=== PATIENT | female | born 1995 | race American Indian/Alaskan Native ===

== ENCOUNTER 2017-10-23 19:52 | Emergency (ER) | payer SELFPAY ==
[2017-10-23 20:47] LABS: HCG Qualitative,Urine Positive (Negative)
[2017-10-23 20:49] LABS: Bacteria,Urine 1+ /HPF (Negative); Bilirubin,Urine NEG (Negative); Blood,Urine NEG (Negative); Color,Urine Yellow (Yellow); Mucus,Urine FEW /HPF; Protein,Urine <15 mg/dL mg/dL (Negative); Urobilinogen,Urine < 2.0 mg/dL (<2.0)
--- NOTE | 2017-10-23 21:26 | Emergency Department Report ---
ED Female HPI - General Chief complaint: Urogenital-Female Stated complaint: ABD PAIN/ SORETHROAT Time Seen by Provider: 10/23/17 21:25 Source: patient, family Mode of arrival: Ambulatory Limitations: No Limitations - History of Present Illness Initial comments: ` This is 22-year-old female here complaining of sore throat and nasal congestion 1 week. She is also reporting vaginal discharged order an abdominal cramping. Denies any back pain. Denies any concern for STD because she said she was check recently for STD. Abdominal cramping or pelvic areas 4- 10. Denies any vaginal bleeding. Denies any nausea or vomiting. Denies any chest pain or shortness of breath. Denies any fever or chills. Denies any diarrhea. Pain is crampy and comes and goes nothing makes it better and nothing makes it worse. No [id number] medication taken. MD Complaint: vaginal discharge, pelvic pain, other (nasal congestion with sore throat) Onset/Timin -: week(s) Location: suprapubic Radiation: non-radiating Severity: mild Severity scale (0 -10): 4 Quality: cramping Consistency: intermittent Improves with: none Worsens with: none Are you Now?: No Last Menstrual Period: 08/24/17 EDC: 05/31/18 Associated Symptoms: vaginal discharge, abdominal pain, other (nasal congestion with sore throat). denies: vaginal bleeding, nausea/vomiting, fever/chills, headaches, loss of appetite, dysuria, hematuria, rash, seizure, shortness of breath, syncope, weakness - Related Data Sexually active: Yes : 0 Previous Rx's Medication Instructions Recorded Last Taken Type Vit,Calc76/Iron/Folic 1 each PO QDAY 30 Days #30 tablet 10/24/17 Unknown Rx [Pnv 29-1 Tablet] metroNIDAZOLE [Flagyl] 500 mg PO Q12HR 7 Days #14 tab 10/24/17 Unknown Rx Allergies Allergy/AdvReac Type Severity Reaction Status Date / Time Penicillins Allergy Itching Verified 10/23/17 20:17 ED Review of Systems ROS: Stated complaint: ABD PAIN/ SORETHROAT Other details as noted in HPI Constitutional: denies: chills, fever Eyes: denies: eye pain, eye discharge, vision change ENT: throat pain, congestion. denies: ear pain Respiratory: denies: cough, orthopnea, shortness of breath, SOB with exertion, SOB at rest, stridor, wheezing Cardiovascular: denies: chest pain, palpitations, edema, syncope Gastrointestinal: abdominal pain. denies: nausea, vomiting, diarrhea, hematemesis, hematochezia Genitourinary: discharge. denies: urgency, dysuria, frequency, hematuria Musculoskeletal: denies: back pain, joint swelling, arthralgia, myalgia Skin: denies: rash, lesions Neurological: denies: headache, weakness Psychiatric: denies: anxiety, depression Hematological/Lymphatic: denies: easy bleeding, easy bruising ED Past Medical Hx - Past Medical History Previous Medical History?: No - Surgical History Past Surgical History?: No - Family History Family history: no significant - Social History Smoking Status: Current Every Day Smoker Substance Use Type: None - Medications Home Medications: Home Medications Medication Instructions Recorded Confirmed Last Taken Type Vit,Calc76/Iron/Folic 1 each PO QDAY 30 Days #30 tablet 10/24/17 Unknown Rx [Pnv 29-1 Tablet] metroNIDAZOLE [Flagyl] 500 mg PO Q12HR 7 Days #14 tab 10/24/17 Unknown Rx ED Physical Exam - General Limitations: No Limitations General appearance: alert, in no apparent distress - Head Head exam: Present: atraumatic, normocephalic, normal inspection - Eye Eye exam: Present: normal appearance, PERRL, EOMI Pupils: Present: normal accommodation - ENT ENT exam: Present: normal orophraynx, mucous membranes moist, normal external ear exam, other (bilateral nasal mucosa pale and boggy). Absent: TM's normal bilaterally (bilateral TM congested without erythema) - Neck Neck exam: Present: normal inspection, full ROM, other (no C-spine tenderness). Absent: tenderness, lymphadenopathy - Respiratory Respiratory exam: Present: normal lung sounds bilaterally. Absent: respiratory distress, wheezes, rales, rhonchi, stridor, chest wall tenderness, accessory muscle use, decreased breath sounds, prolonged expiratory - Cardiovascular Cardiovascular Exam: Present: regular rate, normal rhythm, normal heart sounds. Absent: systolic murmur, diastolic murmur - GI/Abdominal GI/Abdominal exam: Present: soft, normal bowel sounds. Absent: distended, tenderness, guarding, rebound, rigid, mass, bruit, pulsatile mass, hernia - External exam: Present: normal external exam. Absent: erythema, swelling, lesions, lacerations, ecchymosis, bleeding Speculum exam: Present: vaginal discharge, cervical discharge. Absent: erythema , vaginal bleeding, foreign body, tissue, laceration Bi-manual exam: Present: normal bi-manual exam. Absent: cervical motion tendernes, adnexal tenderness, adnexal mass - Expanded Exam Expanded Female exam: Absent: vaginal laceration, tissue present in vagina, herpetic lesions, vulvar erythema, vulvar tenderness, foreign body External exam: Present: normal Amniotic fluid: Present: none Speculum exam: Present: cervical OS closed, vaginal discharge. Absent: vaginal bleeding - Extremities Exam Extremities exam: Present: normal inspection, full ROM, normal capillary refill , other (no clubbing, cyanosis or edema. +2 pulses to all extremities). Absent : tenderness, pedal edema, joint swelling, calf tenderness - Back Exam Back exam: Present: normal inspection, full ROM. Absent: tenderness, CVA tenderness (R), CVA tenderness (L), muscle spasm, paraspinal tenderness, vertebral tenderness, rash noted - Neurological Exam Neurological exam: Present: alert, oriented X3, normal gait - Psychiatric Psychiatric exam: Present: normal affect, normal mood - Skin Skin exam: Present: warm, dry, intact, normal color. Absent: rash ED Course Vital Signs 10/23/17 10/24/17 20:00 02:08 Temperature 98.2 F Pulse Rate 71 68 Respiratory 16 18 Rate Blood Pressure 121/68 Blood Pressure 120/66 [Right] O2 Sat by Pulse 100 100 Oximetry - Reevaluation(s) Reevaluation #1: 10/24/17 00:07 Patient is stable at present still awaiting in wet prep results. Ultrasound positive . Patient is not having any abdominal pain. Abdominal exam is stable Reevaluation #2: 10/24/17 01:55 Patient is stable and I discussed with her ultrasound report and also care and how to apply for Medicaid for . I discussed with her the need to follow-up with [facility] ACCOUNT MANAGER. I also discussed with her her urinalysis results on other lab results along with wet prep which is positive for BV and patient does not want to be treated for gonorrhea and chlamydia because she says she knows she is does not have that. ED Medical Decision Making - Lab Data Result diagrams: 10/23/17 21:43 10/23/17 21:43 Lab Results 10/23/17 10/23/17 10/23/17 Range/Units 20:23 21:43 21:43 WBC 8.9 (4.5-11.0) K/mm3 RBC 3.99 (3.65-5.03) M/mm3 Hgb 12.4 (10.1-14.3) gm/dl Hct 36.9 (30.3-42.9) % MCV 93 (79-97) fl MCH 31 (28-32) pg MCHC 34 (30-34) % RDW 12.7 L (13.2-15.2) % Plt Count 265 (140-440) K/mm3 Lymph % (Auto) 25.8 (13.4-35.0) % [place] % (Auto) 9.4 H (0.0-7.3) % Eos % (Auto) 1.2 (0.0-4.3) % Baso % (Auto) 0.4 (0.0-1.8) % Lymph # 2.3 (1.2-5.4) K/mm3 [place] # 0.8 (0.0-0.8) K/mm3 Eos # 0.1 (0.0-0.4) K/mm3 Baso # 0.0 (0.0-0.1) K/mm3 Seg Neutrophils % 63.2 (40.0-70.0) % Seg Neutrophils # 5.6 (1.8-7.7) K/mm3 Sodium 135 L (137-145) mmol/L Potassium 3.8 (3.6-5.0) mmol/L Chloride 100.0 (98-107) mmol/L Carbon Dioxide 24 (22-30) mmol/L Anion Gap 15 mmol/L BUN 12 (7-17) mg/dL Creatinine 0.6 L (0.7-1.2) mg/dL Estimated GFR > 60 ml/min BUN/Creatinine Ratio 20 % Glucose 66 (65-100) mg/dL Calcium 9.1 (8.4-10.2) mg/dL HCG, Quant (0-4) mIU/mL Urine Color Yellow (Yellow) Urine Turbidity Clear (Clear) Urine pH 6.0 (5.0-7.0) Ur Specific [place] 1.017 (1.003-1.030) Urine Protein <15 mg/dl (Negative) mg/dL Urine Glucose (UA) Neg (Negative) mg/dL Urine Ketones Neg (Negative) mg/dL Urine Blood Neg (Negative) Urine Nitrite Neg (Negative) Ur Reducing Substances Not Reportable Urine Bilirubin Neg (Negative) Urine Ictotest Not Reportable Urine Urobilinogen < 2.0 (<2.0) mg/dL Ur Leukocyte Esterase Neg (Negative) Urine WBC (Auto) 3.0 (0.0-6.0) /HPF Urine RBC (Auto) 2.0 (0.0-6.0) /HPF U Epithel Cells (Auto) 2.0 (0-13.0) /HPF Urine Bacteria (Auto) 1+ (Negative) /HPF Urine Mucus Few /HPF Urine HCG, Qual Positive A (Negative) 10/23/17 Range/Units 21:43 WBC (4.5-11.0) K/mm3 RBC (3.65-5.03) M/mm3 Hgb (10.1-14.3) gm/dl Hct (30.3-42.9) % MCV (79-97) fl MCH (28-32) pg MCHC (30-34) % RDW (13.2-15.2) % Plt Count (140-440) K/mm3 Lymph % (Auto) (13.4-35.0) % [place] % (Auto) (0.0-7.3) % Eos % (Auto) (0.0-4.3) % Baso % (Auto) (0.0-1.8) % Lymph # (1.2-5.4) K/mm3 [place] # (0.0-0.8) K/mm3 Eos # (0.0-0.4) K/mm3 Baso # (0.0-0.1) K/mm3 Seg Neutrophils % (40.0-70.0) % Seg Neutrophils # (1.8-7.7) K/mm3 Sodium (137-145) mmol/L Potassium (3.6-5.0) mmol/L Chloride (98-107) mmol/L Carbon Dioxide (22-30) mmol/L Anion Gap mmol/L BUN (7-17) mg/dL Creatinine (0.7-1.2) mg/dL Estimated GFR ml/min BUN/Creatinine Ratio % Glucose (65-100) mg/dL Calcium (8.4-10.2) mg/dL HCG, Quant 93004 H (0-4) mIU/mL Urine Color (Yellow) Urine Turbidity (Clear) Urine pH (5.0-7.0) Ur Specific [place] (1.003-1.030) Urine Protein (Negative) mg/dL Urine Glucose (UA) (Negative) mg/dL Urine Ketones (Negative) mg/dL Urine Blood (Negative) Urine Nitrite (Negative) Ur Reducing Substances Urine Bilirubin (Negative) Urine Ictotest Urine Urobilinogen (<2.0) mg/dL Ur Leukocyte Esterase (Negative) Urine WBC (Auto) (0.0-6.0) /HPF Urine RBC (Auto) (0.0-6.0) /HPF U Epithel Cells (Auto) (0-13.0) /HPF Urine Bacteria (Auto) (Negative) /HPF Urine Mucus /HPF Urine HCG, Qual (Negative) Urine culture sent Wet prep: No trichomoniasis, no yeast and greater then 20% clue cells. Gonorrhea and chlamydia pending - Radiology Data Radiology results: report reviewed OB less than 14 week transfer abdominal and transvaginal ultrasound obtained and dictated by radiologist. See results below Patient: TASHIA BENITEZ MR#: [id number] : 1995 Acct:[id number] Age/Sex: 22 / F ADM Date: 10/23/17 Loc: ED Attending Dr: Ordering Physician: GUADALUPE SALDIVAR Date of Service: 10/23/17 Procedure(s): US OB transvaginal Accession Number(s): [id number] cc: GUADALUPE SALDIVAR FINAL REPORT EXAM: US OB TRANSVAGINAL COMPARISON: None available. HISTORY: positive with abdominal pain TECHNIQUE: Several real-time grayscale and color Doppler images were obtained. Transabdominal and transvaginal exam. FINDINGS: Uterus measures 8.8 x 5.3 x 7.0 centimeters. Single live IUP. Estimated gestational age 7 weeks 3 days. Estimated delivery date June 08, 2018. heart rate 147 beats per minute. There is a small subchorionic hemorrhage measuring 1.0 x 0.6 x 1.5 centimeters. At the posterior body of the uterus there is a hypoechoic lesion compatible fibroid measuring 1.0 x 0.8 x 0.9 centimeters. Right ovary measures 4.1 x 2.8 x 2.4 centimeters. The left ovary measures 2.9 x 1.6 x 1.8 centimeters. Within the right ovary, there is a 2.6 by 1.8 x 1.9 centimeter hypoechoic avascular structure which may reflect corpus luteum. No adnexal masses. IMPRESSION: Single live IUP. Estimated gestational age 7 weeks 3 days. Estimated delivery date 08/03/2018. Small subchorionic hemorrhage. 2.6 centimeter hypoechoic avascular structure in the right ovary which may reflect corpus luteum. No adnexal masses are demonstrated. 1 centimeter fibroid at the posterior body of the uterus. Transcribed By: SHAREE Dictated By: VALENTIN MARTINEZ MD Electronically Authenticated By: VALENTIN MARTINEZ MD Signed Date/Time: 10/23/172258 DD/ 58 TD/TT: 10/23/172258 - Medical Decision Making ED course This is a 22-year-old female here reports that she is having sore throat and nasal congestion 1 week and she is also reporting that she does have vaginal discharge with odor and abdominal cramping reports not concerned for STD because she had STD testing done and she is not concerned. She says she has one partner and her partner is only sleeping with her. Partner is with her and he denies having any symptoms. He denies having any sexual activity would any other individual. Patient reports she is here to be checked. Patient was seen and examined by myself and she is stable. Ultrasound transabdominal OB less than 14 weeks and transvaginal reveals single IUP at 7 weeks and 3 days, small subchorionic hemorrhage noted. The heart rate is about 147 beats per minute. Right ovarian cyst noted and 1 cm uterine fibroid noted. No medication needed and emergency room and she is eating and drinking well. Vital signs are stable she is afebrile. . She had CBC done and stable, quantitative positive and correlates with ultrasound. Wet prep positive for bacterial vaginosis and gonorrhea and chlamydia pending. Urinalysis reveals normal values except for 1+ bacteria and urine is positive. Urine culture sent. BMP is stable. I discussed the patient the results of her ultrasound and also her lab results with positive wet prep for BV. I discussed with her treatment plan for BV and she wants to wait for the gonorrhea and chlamydia tests to come back because she says she does not have gonorrhea or chlamydia. I discussed with her that she needs to follow-up with [facility] for follow-up care. She was given information on obtaining and will care by financial services. Patient voiced understanding. A/P 1: Positive IUP at 7 weeks and 3 days- verified by ultrasound with positive heart rate at 147. Small subchorionic bleed. Patient will be started on vitamin and referred to [facility] ACCOUNT MANAGER for care 2: Pelvic pain: Patient is stable and did not need any medication. Abdominal exam is normal without any tenderness. Pelvic exam is normal for vaginal discharge 3: Allergic rhinitis-patient instructed to flush her nostrils with nasal saline wash 3 times a day. 4: Ovarian cyst, right-referral to [facility]IST[facility] ACCOUNT MANAGER 5-uterine fibroids-per ultrasound and will be managed by ASSISTANT ACCOUNT MANAGER 6: Vaginal discharge-wet prep positive for bacterial vaginosis, negative for trichomoniasis and yeast. Gonorrhea and chlamydia is pending. Patient will be treated with Flagyl for bacterial vaginosis and she wants to wait for gonorrhea and chlamydia tests come back because she said she had recent STD testing and and was negative. 7: Nicotine abuse: Smoking cessation encouraged and information given on how to stop smoking and effects of smoking on fetus. Patient education medication, diagnosis, labs, treatment plan and need to follow -up. care, smoking cessation and smoking and effects on the fetus. She voiced understanding. Prescription for Flagyl and vitamin up and discharged Pt Discharged home in stable condition. Vital signs are stable she is afebrile and to follow-up with [facility] woman [facility] ACCOUNT MANAGER in 2 days . I instructed her to return to the emergency room if she develops vaginal bleeding, increase in pain , nausea and vomiting otherwise follow up with [facility] ACCOUNT MANAGER and she voiced understanding. - Differential Diagnosis ectopic , UTI, uterine fibroids, ovarian cyst, STD Critical care attestation.: If time is entered above; I have spent that time in minutes in the direct care of this critically ill patient, excluding procedure time. ED Disposition Clinical Impression: at early stage, Pelvic pain during , Bacterial vaginosis, Right ovarian cyst, Nicotine abuse Subchorionic hematoma in first trimester Qualifiers: Fetus number: single or unspecified fetus Qualified Code(s): O41.8X10 - Other specified disorders of amniotic fluid and membranes, first trimester, not applicable or unspecified; O46.8X1 - Other antepartum hemorrhage, first trimester Vaginal discharge in Qualifiers: Trimester: first trimester Qualified Code(s): O26.891 - Other specified related conditions, first trimester; N89.8 - Other specified noninflammatory disorders of vagina Uterine fibroid Qualifiers: Uterine leiomyoma location: unspecified location Qualified Code(s): D25.9 - Leiomyoma of uterus, unspecified Allergic rhinitis Qualifiers: Allergic rhinitis trigger: unspecified Allergic rhinitis seasonality: unspecified seasonality Qualified Code(s): J30.9 - Allergic rhinitis, unspecified Disposition: DC-01 TO HOME OR SELFCARE Is pt being admited?: No Does the pt Need Aspirin: No Condition: Stable Instructions: Bacterial Vaginosis (ED), How to Stop Smoking (ED), Secondhand Smoke Exposure in Children (ED), (ED), Abdominal Pain in ( ED), Allergic Rhinitis (ED), Safe Sex (ED), Uterine Fibroids (ED), Ovarian Cyst (ED) Additional Instructions: Patient started to follow-up with ASSISTANT ACCOUNT MANAGER and to refer to discharge instruction paperwork for phone number and address of ASSISTANT ACCOUNT MANAGER to call on Wednesday to schedule an appointment. Instructed to return to emergency room if she developed increase in abdominal pain, vaginal bleeding, nausea and vomiting otherwise if not follow up with her ASSISTANT ACCOUNT MANAGER Smoking cessation encouraged and literature given on how to stop smoking and effects of smoking on children. Start taking vitamin Start taking Flagyl for bacterial vaginosis Increase her fluid intake Practice safe sex Prescriptions: metroNIDAZOLE [Flagyl] 500 mg PO Q12HR 7 Days #14 tab Vit,Calc76/Iron/Folic [Pnv 29-1 Tablet] 1 each PO QDAY 30 Days #30 tablet Referrals: [facility] [Outside] - 10/25/17 BERNICE FRANCO MD [Staff Physician] - 10/25/17 Forms: STI Treatment and Prevention, Accompanied Note, Work/School Release Form (ED)
[2017-10-23 22:04] LABS: Basophils % (Auto) 0.4 % (0.0-1.8); Eosinophils # (Auto) 0.1 K/mm3 (0.0-0.4); Eosinophils % (Auto) 1.2 % (0.0-4.3); Hematocrit 36.9 % (30.3-42.9); Hemoglobin 12.4 gm/dl (10.1-14.3); Lymphocytes # (Auto) 2.3 K/mm3 (1.2-5.4); Lymphocytes % (Auto) 25.8 % (13.4-35.0); Mean Corpuscular HGB Conc 34 % (30-34); Mean Corpuscular Hemoglobin 31 pg (28-32); Mean Corpuscular Volume 93 fl (79-97); Monocytes # (Auto) 0.8 K/mm3 (0.0-0.8); Monocytes % (Auto) 9.4 % (0.0-7.3); Platelet Count 265 K/mm3 (140-440); Red Blood Count 3.99 M/mm3 (3.65-5.03); Red Cell Distribution Width 12.7 % (13.2-15.2)
[2017-10-23 22:39] LABS: BUN/Creatinine Ratio 20; Blood Urea Nitrogen 12 mg/dL (7-17); Calcium 9.1 mg/dL (8.4-10.2); Hemolysis Index 2
--- NOTE | 2017-10-23 23:03 | Ultrasound Report ---
FINAL REPORT EXAM: US OB TRANSVAGINAL COMPARISON: None available. HISTORY: positive with abdominal pain TECHNIQUE: Several real-time grayscale and color Doppler images were obtained. Transabdominal and transvaginal exam. FINDINGS: Uterus measures 8.8 x 5.3 x 7.0 centimeters. Single live IUP. Estimated gestational age 7 weeks 3 days. Estimated delivery date June 08, 2018. heart rate 147 beats per minute. There is a small subchorionic hemorrhage measuring 1.0 x 0.6 x 1.5 centimeters. At the posterior body of the uterus there is a hypoechoic lesion compatible fibroid measuring 1.0 x 0.8 x 0.9 centimeters. Right ovary measures 4.1 x 2.8 x 2.4 centimeters. The left ovary measures 2.9 x 1.6 x 1.8 centimeters. Within the right ovary, there is a 2.6 by 1.8 x 1.9 centimeter hypoechoic avascular structure which may reflect corpus luteum. No adnexal masses. IMPRESSION: Single live IUP. Estimated gestational age 7 weeks 3 days. Estimated delivery date 08/03/2018. Small subchorionic hemorrhage. 2.6 centimeter hypoechoic avascular structure in the right ovary which may reflect corpus luteum. No adnexal masses are demonstrated. 1 centimeter fibroid at the posterior body of the uterus.
--- NOTE | 2017-10-23 23:03 | Ultrasound Report ---
FINAL REPORT EXAM: US OB < = 14 WEEKS FETUS HISTORY: positive with abdominal pain COMPARISON: None available. TECHNIQUE: Several real-time grayscale and color Doppler images were obtained. Transabdominal and transvaginal exam. FINDINGS: Uterus measures 8.8 x 5.3 x 7.0 centimeters. Single live IUP. Estimated gestational age 7 weeks 3 days. Estimated delivery date June 08, 2018. heart rate 147 beats per minute. There is a small subchorionic hemorrhage measuring 1.0 x 0.6 x 1.5 centimeters. At the posterior body of the uterus there is a hypoechoic lesion compatible fibroid measuring 1.0 x 0.8 x 0.9 centimeters. Right ovary measures 4.1 x 2.8 x 2.4 centimeters. The left ovary measures 2.9 x 1.6 x 1.8 centimeters. Within the right ovary, there is a 2.6 by 1.8 x 1.9 centimeter hypoechoic avascular structure which may reflect corpus luteum. No adnexal masses. IMPRESSION: Single live IUP. Estimated gestational age 7 weeks 3 days. Estimated delivery date 08/03/2018. Small subchorionic hemorrhage. 2.6 centimeter hypoechoic avascular structure in the right ovary which may reflect corpus luteum. No adnexal masses are demonstrated. 1 centimeter fibroid at the posterior body of the uterus.
[2017-10-24 02:08] VITALS: BP 120/66
== END 2017-10-24 03:17 | disposition home or self-care (01) ==
LOC: ED 19:52
DX: O26.891 Other specified pregnancy related conditions, first trimester (principal); N89.8 Other specified noninflammatory disorders of vagina; J30.9 Allergic rhinitis, unspecified; O34.11 Maternal care for benign tumor of corpus uteri, first trimester; O43.891 Other placental disorders, first trimester; O23.591 Infection of other part of genital tract in pregnancy, first trimester; O99.331 Smoking (tobacco) complicating pregnancy, first trimester; Z88.0 Allergy status to penicillin; Z3A.01 Less than 8 weeks gestation of pregnancy
CPT/HCPCS: 36415; 76801; 76817; 80048; 81001; 81025; 84702; 85025; 87086; 87210; 87591; 99284

== ENCOUNTER 2017-11-11 18:21 | Emergency (ER) | payer SELFPAY ==
[2017-11-11] MEDS ORDERED: XYLOCAINE 1% MPF 5 mL INFILTRATI ONE (21:16)
[2017-11-11] MEDS ORDERED: ZITHROMAX PO ONE (21:16)
[2017-11-11] MEDS ORDERED: ROCEPHIN IM ONE (21:16)
--- NOTE | 2017-11-11 21:45 | Emergency Department Report ---
ED HPI - General Chief complaint: Abdominal Pain Stated complaint: 12WKS SEVERE STOMACH PAINS Time Seen by Provider: 11/11/17 21:14 Source: patient Mode of arrival: Ambulatory Limitations: No Limitations - History of Present Illness Initial comments: This is a 22-year-old female nontoxic, well nourished in appearance, no acute signs of distress presents to the ED with c/o of intermittent pelvic cramping. Patient denies any vaginal bleeding. Patient denies any upper abdomen pain. Patient denies any vaginal discharge. Patient denies any nausea, vomiting, chest pain, shortness of breathe, fever, chills, headache, stiff neck , numbness, tingling. Patient denies any urinary symptoms. Patient allergies to penicillin as a child but does not know reaction. Patient denies past medical history. Patient denies followed up with the [facility]. Patient stated that last visit she had a positive test and was told she is about 7 weeks' . MD Complaint: other (pelvic cramping) Location: pelvis Radiation: none Severity: mild Severity scale (0 -10): 3 Quality: cramping Consistency: intermittent, now resolved Improves with: none Worsens with: none Associated symptoms: vaginal discharge. denies: nausea/vomiting, vaginal bleeding, abdominal pain, dysuria, headache, vision changes, malaise, dysparuenia, rash, seizure, shortness of breath, syncope, weakness Vaginal bleeding: none :: Yes OB History - Current : no complications OB History - Previous Pregnancies: no complications Pre-wood care: none - Related Data Previous Rx's Medication Instructions Recorded Last Taken Type Vit,Calc76/Iron/Folic 1 each PO QDAY 30 Days #30 tablet 10/24/17 Unknown Rx [Pnv 29-1 Tablet] metroNIDAZOLE [Flagyl] 500 mg PO Q12HR 7 Days #14 tab 10/24/17 Unknown Rx Acetaminophen 500 mg PO Q6H PRN #30 tablet 11/11/17 Unknown Rx Allergies Allergy/AdvReac Type Severity Reaction Status Date / Time Penicillins Allergy Itching Verified 10/23/17 20:17 ED Review of Systems ROS: Stated complaint: 12WKS SEVERE STOMACH PAINS Other details as noted in HPI Constitutional: denies: chills, fever Eyes: denies: eye pain, eye discharge, vision change ENT: denies: ear pain, throat pain Respiratory: denies: cough, shortness of breath, wheezing Cardiovascular: denies: chest pain, palpitations Endocrine: no symptoms reported Gastrointestinal: abdominal pain (pelvic area). denies: nausea, diarrhea Genitourinary: discharge. denies: urgency, dysuria, frequency, hematuria Musculoskeletal: denies: back pain, joint swelling, arthralgia Skin: denies: rash, lesions Neurological: denies: headache, weakness, paresthesias Psychiatric: denies: anxiety, depression Hematological/Lymphatic: denies: easy bleeding, easy bruising ED Past Medical Hx - Past Medical History Previous Medical History?: Yes Additional medical history: Uterine fibroids, Ovarian cyst, Bacterial vaginosis - Social History Smoking Status: Former Smoker Substance Use Type: Alcohol, Prescribed - Medications Home Medications: Home Medications Medication Instructions Recorded Confirmed Last Taken Type Vit,Calc76/Iron/Folic 1 each PO QDAY 30 Days #30 tablet 10/24/17 Unknown Rx [Pnv 29-1 Tablet] metroNIDAZOLE [Flagyl] 500 mg PO Q12HR 7 Days #14 tab 10/24/17 Unknown Rx Acetaminophen 500 mg PO Q6H PRN #30 tablet 11/11/17 Unknown Rx ED Physical Exam - General Limitations: No Limitations General appearance: alert, in no apparent distress - Head Head exam: Present: atraumatic, normocephalic - Eye Eye exam: Present: normal appearance Pupils: Present: normal accommodation - ENT ENT exam: Present: normal exam, mucous membranes moist - Neck Neck exam: Present: normal inspection, full ROM. Absent: tenderness, meningismus, lymphadenopathy - Respiratory Respiratory exam: Present: normal lung sounds bilaterally. Absent: respiratory distress, wheezes, rales, rhonchi, stridor, chest wall tenderness, accessory muscle use, decreased breath sounds, prolonged expiratory - Cardiovascular Cardiovascular Exam: Present: regular rate, normal rhythm, normal heart sounds. Absent: bradycardia, tachycardia, irregular rhythm, systolic murmur, diastolic murmur, rubs, gallop - GI/Abdominal GI/Abdominal exam: Present: soft, normal bowel sounds. Absent: distended, tenderness, guarding, rebound, rigid, diminished bowel sounds - Expanded GI/Abdominal Exam Expanded GI/Abdominal exam: Absent: psoas sign, obturator sign, heel tap sign, Quick's sign, Rovsing's sign, tenderness at Mcbur[place]'s Point, ascites - Rectal Rectal exam: Present: deferred - Extremities Exam Extremities exam: Present: normal inspection, full ROM, normal capillary refill. Absent: tenderness - Back Exam Back exam: Present: normal inspection, full ROM. Absent: tenderness, CVA tenderness (R), CVA tenderness (L), muscle spasm, paraspinal tenderness, vertebral tenderness - Neurological Exam Neurological exam: Present: alert, oriented X3, normal gait - Psychiatric Psychiatric exam: Present: normal affect, normal mood - Skin Skin exam: Present: warm, dry, intact, normal color. Absent: rash ED Course Vital Signs 11/11/17 11/11/17 18:32 23:18 Temperature 97.7 F 97.9 F Pulse Rate 88 90 Respiratory 20 18 Rate Blood Pressure 115/60 Blood Pressure 120/67 [Right] O2 Sat by Pulse 100 100 Oximetry - Reevaluation(s) Reevaluation #1: 11/11/17 21:47 Patient is speaking in full sentences with no signs of distress noted. ED Medical Decision Making - Lab Data Result diagrams: 11/11/17 21:21 11/11/17 21:21 - Medical Decision Making This is a 22-year-old female presents with gonorrhea and pelvic cramping. Patient is stable and was examined by me. previous visit has a positive gonorrhea but patient was not treated for this. during exam, patient stated abdominal pain has resolved. Normal abdominal exam. US OB obtained and dictated by the radiologist by the radiologist. Ua obtained. Quantative serum test obtained. Patient notified of the US report with no questions noted by the patient. No vaginal bleeding. Patient received Rocephin and azithromycin as she stated that she is not sure of allergies to penicillin upon examination. Labs within normal limits. Patient was referred to Follow-up with a [facility] in 3 -5 days or if symptoms worsen and continue return to emergency room as soon as possible. At time of discharge, the patient does not seem toxic or ill in appearance. No acute signs of distress noted. Patient agrees to discharge treatment plan of care. No further questions noted by the patient. Critical care attestation.: If time is entered above; I have spent that time in minutes in the direct care of this critically ill patient, excluding procedure time. ED Disposition Clinical Impression: Gonorrhea, with abdominal cramping of lower quadrant, antepartum Disposition: DC- TO HOME OR SELFCARE Is pt being admited?: No Does the pt Need Aspirin: No Condition: Stable Instructions: Abdominal Pain (ED), (ED), Gonococcal Urethritis (ED) Additional Instructions: Follow-up with a [facility] doctor in 3-5 days or if symptoms worsen and continue return to emergency room as soon as possible. Prescriptions: Acetaminophen 500 mg PO Q6H PRN #30 tablet PRN Reason: Pain , Severe (7-10) Referrals: PRIMARY CAREMD [Primary Care Provider] - 3-5 Days BERNICE FRANCO MD [Staff Physician] - 3-5 Days [facility] [Provider Group] - 3-5 Days [facility] [Outside] - 3-5 Days Forms: Work/School Release Form(ED)
[2017-11-11 22:15] LABS: Basophils % (Auto) 0.6 % (0.0-1.8); Eosinophils # (Auto) 0.1 K/mm3 (0.0-0.4); Eosinophils % (Auto) 0.6 % (0.0-4.3); Hematocrit 32.1 % (30.3-42.9); Hemoglobin 10.9 gm/dl (10.1-14.3); Lymphocytes # (Auto) 2.3 K/mm3 (1.2-5.4); Lymphocytes % (Auto) 26.7 % (13.4-35.0); Mean Corpuscular HGB Conc 34 % (30-34); Mean Corpuscular Hemoglobin 32 pg (28-32); Mean Corpuscular Volume 93 fl (79-97); Monocytes # (Auto) 0.8 K/mm3 (0.0-0.8); Platelet Count 230 K/mm3 (140-440); Red Blood Count 3.44 M/mm3 (3.65-5.03); Red Cell Distribution Width 12.6 % (13.2-15.2)
[2017-11-11 22:32] LABS: BUN/Creatinine Ratio 30; Blood Urea Nitrogen 15 mg/dL (7-17); Calcium 8.7 mg/dL (8.4-10.2); Hemolysis Index 5; Lipase 61 units/L (13-60)
[2017-11-11 23:18] VITALS: BP 120/67
--- NOTE | 2017-11-11 23:31 | Ultrasound Report ---
FINAL REPORT EXAM: US OB < = 14 WEEKS FETUS HISTORY: pelvic pain TECHNIQUE: Obstetrical ultrasound transabdominal PRIORS: None. FINDINGS: There is gestational sac within the uterus There is a pole present with crown-rump length of 3.29 centimeters estimated at 10 weeks 1 day with estimated date of delivery June 08, 2018 cardiac activity is present with heart rate of 167 beats per minute Yolk sac is identified There is a small hypoechoic focus adjacent to the gestational sac probable small subchorionic hemorrhage. Noted is 1.6 centimeter posterior fibroid within the uterus. Right ovary is 3.8 x 1.7 x 2.6 centimeters There is a 2.0 centimeter right ovarian cyst probable corpus luteum Superior to the right of the uterus there is kidney present measuring 11.3 centimeters in length without evidence for hydronephrosis consistent with a pelvic kidney. Left ovary is 3.2 x 2.5 x 1.8 centimeters. No abnormal mass or cyst identified IMPRESSION: Single live intrauterine gestation estimated at 10 weeks 1 day Small subchorionic hemorrhage 1.6 centimeter uterine fibroid noted Pelvic kidney
== END 2017-11-11 23:47 | disposition home or self-care (01) ==
LOC: ED 18:21
DX: O98.211 Gonorrhea complicating pregnancy, first trimester (principal); O26.891 Other specified pregnancy related conditions, first trimester; R10.2 Pelvic and perineal pain; D25.9 Leiomyoma of uterus, unspecified; N83.209 Unspecified ovarian cyst, unspecified side; Z87.891 Personal history of nicotine dependence; Z88.0 Allergy status to penicillin; Z3A.12 12 weeks gestation of pregnancy
CPT/HCPCS: 36415; 76801; 80048; 83690; 84702; 85025; 96372; 99283; J0696

== ENCOUNTER 2021-05-01 03:41 | Emergency (ER) | payer MEDICAID ==
[2021-05-01] MEDS ORDERED: HYDROcodone/ACETAMINOPHEN 5-325 MG TAB PO ONE (06:47)
[2021-05-01] MEDS ORDERED: ceFAZolin 1 GM VIAL IM ONE (06:47)
--- NOTE | 2021-05-01 06:50 | Emergency Department Report ---
ED Lower Extremity HPI - General Chief Complaint: Extremity Injury, Lower Stated Complaint: FOOT PAIN Time Seen by Provider: 05/01/21 06:33 Source: patient Mode of arrival: Ambulatory Limitations: No Limitations - History of Present Illness Initial Comments: Patient presents with pain in the right foot with swelling. She noticed some sort of pustule several days ago between her toes. She popped it, and it returned. She popped it again, and now her foot is swollen. She has subjective fevers. There is no chills. Patient states that this was between the second and third toes. She is now noticed swelling in the foot diffusely. She does not have isolated swelling like she did. She did get some purulent drainage out when she popped this with a needle. That occurred both times. She has no direct trauma. She has no fevers or chills. There is no cough or congestion. - Related Data Previous Rx's Medication Instructions Recorded Last Taken Type Vit,Calc76/Iron/Folic 1 each PO QDAY 30 Days #30 tablet 10/24/17 Unknown Rx [Pnv 29-1 Tablet] metroNIDAZOLE [Flagyl] 500 mg PO Q12HR 7 Days #14 tab 10/24/17 Unknown Rx Acetaminophen 500 mg PO Q6H PRN #30 tablet 11/11/17 Unknown Rx Acetaminophen/Codeine [Tylenol 1 tab PO Q6H PRN #12 tab 05/01/21 Unknown Rx /Codeine # 3 tab] cephALEXin [Keflex] 500 mg PO Q8HR #21 cap 05/01/21 Unknown Rx Allergies Allergy/AdvReac Type Severity Reaction Status Date / Time Penicillins Allergy Itching Verified 10/23/17 20:17 ED Review of Systems ROS: Stated complaint: FOOT PAIN Other details as noted in HPI Comment: All other systems reviewed and negative Constitutional: denies: fever Eyes: denies: vision change ENT: denies: throat pain Respiratory: denies: cough Cardiovascular: denies: chest pain Endocrine: denies: unexplained weight loss Gastrointestinal: denies: abdominal pain Genitourinary: denies: dysuria Skin: as per HPI Hematological/Lymphatic: denies: easy bruising ED Past Medical Hx - Past Medical History Previous Medical History?: Yes Additional medical history: Uterine fibroids, Ovarian cyst, Bacterial vaginosis - Surgical History Past Surgical History?: No - Family History Family history: no significant - Social History Smoking Status: Former Smoker Substance Use Type: Alcohol, Prescribed - Medications Home Medications: Home Medications Medication Instructions Recorded Confirmed Last Taken Type Vit,Calc76/Iron/Folic 1 each PO QDAY 30 Days #30 tablet 10/24/17 Unknown Rx [Pnv 29-1 Tablet] metroNIDAZOLE [Flagyl] 500 mg PO Q12HR 7 Days #14 tab 10/24/17 Unknown Rx Acetaminophen 500 mg PO Q6H PRN #30 tablet 11/11/17 Unknown Rx Acetaminophen/Codeine [Tylenol 1 tab PO Q6H PRN #12 tab 05/01/21 Unknown Rx /Codeine # 3 tab] cephALEXin [Keflex] 500 mg PO Q8HR #21 cap 05/01/21 Unknown Rx ED Physical Exam - General Limitations: No Limitations, Other (Pulse ox noted and normal) General appearance: alert, in no apparent distress - Head Head exam: Present: atraumatic, normocephalic - Eye Eye exam: Present: normal appearance, EOMI - ENT ENT exam: Present: normal external ear exam - Neck Neck exam: Present: normal inspection - Respiratory Respiratory exam: Absent: respiratory distress - Cardiovascular Cardiovascular Exam: Present: other (Normal pedal pulses and radial pulses) - Extremities Exam Extremities exam: Present: normal capillary refill, other (There is edema and tenderness with palpation over the right foot diffusely. Toes are moderately involved. There is no evidence of abscess. There is some induration noted both dorsally and plantarly. Patient has brisk capillary refill. Sensation is reportedly normal.) - Back Exam Back exam: Absent: CVA tenderness (R), CVA tenderness (L) - Neurological Exam Neurological exam: Present: alert, oriented X3, CN II-XII intact, abnormal gait (Antalgic) - Psychiatric Psychiatric exam: Present: normal affect, normal mood - Skin Skin exam: Present: warm, dry ED Course Vital Signs 05/01/21 05/01/21 03:56 07:49 Temperature 97.8 F 98.0 F Pulse Rate 94 H 73 Respiratory 18 18 Rate Blood Pressure 101/54 Blood Pressure 122/70 [Left] O2 Sat by Pulse 97 100 Oximetry - Reevaluation(s) Reevaluation #1: 05/01/21 06:48 Patient was treated and released. Old records reviewed. ED Lower Extremity MDM - Medical Decision Making Patient presented with right foot cellulitis after popping a pustule x2. There is no evidence of induration or abscess at this time. Patient does not appear to be toxic. She does not have pain out of proportion to exam. She was treated empirically with analgesics and antibiotics. We have had a discussion about ongoing management. There is no evidence of abscess to drain at this time. We have discussed likely process of this wound and the possible need for drainage at some future date. Critical Care Time: No Critical care attestation.: If time is entered above; I have spent that time in minutes in the direct care of this critically ill patient, excluding procedure time. ED Disposition Clinical Impression: Cellulitis of right foot Disposition: HOME / SELF CARE / HOMELESS Is pt being admited?: No Condition: Stable Additional Instructions: Elevate the foot. Wear the Bob wrap. Take the antibiotics. Return for problems. Follow-up with your regular doctor or the referral physician in 48 hours for recheck. Return for any problems or concerns. Prescriptions: cephALEXin [Keflex] 500 mg PO Q8HR #21 cap Acetaminophen/Codeine [Tylenol /Codeine # 3 tab] 1 tab PO Q6H PRN #12 tab PRN Reason: Pain , Severe (7-10) Referrals: PRIMARY MD DIONE [Primary Care Provider] - 3-5 Days FLOYD ECHEVARRIA MD [Staff Physician] - 3-5 Days
[2021-05-01 07:50] VITALS: BP 122/70
== END 2021-05-01 07:50 | disposition home or self-care (01) ==
LOC: ED 03:41
DX: L03.115 Cellulitis of right lower limb (principal); D25.9 Leiomyoma of uterus, unspecified; Z87.891 Personal history of nicotine dependence; Z88.0 Allergy status to penicillin
CPT/HCPCS: 96372; 99282; J0690